=== PATIENT | female | born 1970 | race Caucasian/White ===

== ENCOUNTER 2021-03-10 07:29 | Outpatient (CLI) | payer BC ==
[2021-03-10 19:37] LABS: SARS-CoV-2 PCR by NAA DETECTED (NotDetected)
== END 2021-03-10 07:30 | disposition home or self-care (01) ==
LOC: CSHLAB 07:29
PROVIDERS: ATTEND Internal Medicine Pulmonary Disease
DX: U07.1 COVID-19 (principal)
CPT/HCPCS: U0003; U0005

== ENCOUNTER 2021-04-21 14:56 | Outpatient (CLI) | payer BC | END 2021-04-21 14:57 | disposition home or self-care (01) | LOC: CSHLAB 14:56 | PROVIDERS: ATTEND Internal Medicine Pulmonary Disease | DX: Z20.822 Contact with and (suspected) exposure to COVID-19 (principal); Z53.9 Procedure and treatment not carried out, unspecified reason ==